=== PATIENT | female | born 1960 | race Caucasian/White ===

== ENCOUNTER 2022-05-19 10:45 | Outpatient (CLI) | payer OTHER, SELFPAY ==
[2022-05-19 22:11] LABS: Albumin* 4.3 g/dL (3.3-5.0); Chloride* 102 mmol/L (96-114); Sodium* 139 mmol/L (135-149)
[2022-05-19 22:12] LABS: Potassium* 4.9 mmol/L (3.6-5.1)
[2022-05-19 22:14] LABS: Aspartate Amino Transferase* 28 U/L (12-35); Bilirubin Total* 1.3 mg/dL (0.1-1.5); Blood Urea Nitrogen* 19 mg/dL (7-30); Carbon Dioxide* 29 mmol/L (20-32); Cholesterol* 181 mg/dL (90-199); Creatinine* 0.6 mg/dL (0.5-1.5); Estimated Glomerular Filt Rate 103 ml/min; Glucose* 82 mg/dL (60-115)
[2022-05-19 22:15] LABS: Alanine Aminotransferase* 23 U/L (4-35); Alkaline Phosphatase* 47 U/L (40-150); Calcium* 10.6 mg/dL (8.4-10.6); HDL Cholesterol* 67 mg/dL (>=50); LDL Cholesterol Calculated 106 mg/dL (<100); Magnesium* 2.2 mg/dL (1.5-2.6); Triglycerides* 41 mg/dL (40-149)
[2022-05-19 23:02] LABS: Vitamin B12* 673 pg/mL (243-894)
== END 2022-05-19 10:46 | disposition home or self-care (01) ==
PROVIDERS: PCP Family Medicine; Visit Provider Family Medicine
DX: E03.9 Hypothyroidism, unspecified (principal); E78.5 Hyperlipidemia, unspecified; I10 Essential (primary) hypertension; M19.90 Unspecified osteoarthritis, unspecified site; G62.9 Polyneuropathy, unspecified; R53.83 Other fatigue
CPT/HCPCS: 80053; 80061; 82607; 83735; 84443